=== PATIENT | male | born 1995 | race American Indian/Alaskan Native ===

== ENCOUNTER 2021-02-11 12:20 | Emergency (ER) | payer BC ==
[2021-02-11] MEDS ORDERED: SODIUM CHLORIDE 0.9% 1000 ML 1,000 ML IV ONE ×2 (12:43→14:24)
[2021-02-11] MEDS ORDERED: ONDANSETRON 4 MG/2 ML INJ IV ONE ×2 (12:43→14:33)
[2021-02-11] MEDS ORDERED: FAMOTIDINE 20 MG/2 ML INJ IV ONE (12:43)
--- NOTE | 2021-02-11 12:53 | Emergency Department Report ---
ED N/V/D HPI - General Chief complaint: Nausea/Vomiting/Diarrhea Stated complaint: EMESIS Time Seen by Provider: 02/11/21 12:40 Source: patient Mode of arrival: Ambulatory Limitations: No Limitations - History of Present Illness Initial comments: Patient is a 25-year-old F [place] male who is previously healthy is presenting with 3 days of nausea and vomiting. Patient states he had not eaten red meat in several years and prepared a beef hamburger at home several days ago and has now been vomiting since. States he ate the hamburger that he believes was cooked throughout and started vomiting the next morning. He states he is weak fatigued from constantly vomiting has been unable to keep anything down. Denies diarrhea fevers chills cough cold congestion. States he has no abdominal pain. - Related Data Previous Rx's Medication Instructions Recorded Last Taken Type Famotidine [Pepcid] 40 mg PO QHS #10 tablet 02/11/21 Unknown Rx Ondansetron [Zofran Odt] 4 mg PO Q8HR #10 tab.rapdis 02/11/21 Unknown Rx Allergies Allergy/AdvReac Type Severity Reaction Status Date / Time No Known Allergies Allergy Unverified 02/11/21 12:27 ED Review of Systems ROS: Stated complaint: EMESIS Other details as noted in HPI Comment: All other systems reviewed and negative ED Past Medical Hx - Past Medical History Hx Asthma: Yes - Surgical History Additional Surgical History: KNEE - Social History Smoking Status: Never Smoker Substance Use Type: None - Medications Home Medications: Home Medications Medication Instructions Recorded Confirmed Last Taken Type Famotidine [Pepcid] 40 mg PO QHS #10 tablet 02/11/21 Unknown Rx Ondansetron [Zofran Odt] 4 mg PO Q8HR #10 tab.rapdis 02/11/21 Unknown Rx ED Physical Exam - General Limitations: No Limitations General appearance: alert, in no apparent distress - Head Head exam: Present: atraumatic, normocephalic - Eye Eye exam: Present: normal appearance - ENT ENT exam: Present: mucous membranes dry - Neck Neck exam: Present: normal inspection - Respiratory Respiratory exam: Present: normal lung sounds bilaterally. Absent: respiratory distress, wheezes, rales, rhonchi - Cardiovascular Cardiovascular Exam: Present: regular rate, normal rhythm, normal heart sounds. Absent: systolic murmur, diastolic murmur, rubs, gallop - GI/Abdominal GI/Abdominal exam: Present: soft, normal bowel sounds. Absent: distended, tenderness, guarding, rebound - Rectal Rectal exam: Present: deferred - Extremities Exam Extremities exam: Present: normal inspection - Back Exam Back exam: Present: normal inspection - Neurological Exam Neurological exam: Present: alert, oriented X3 - Psychiatric Psychiatric exam: Present: normal affect, normal mood - Skin Skin exam: Present: warm, dry, intact, normal color. Absent: rash ED Course Vital Signs 02/11/21 02/11/21 12:28 15:50 Temperature 98.7 F Pulse Rate 90 97 H Respiratory 20 16 Rate Blood Pressure 148/99 Blood Pressure 152/87 [Right] O2 Sat by Pulse 98 98 Oximetry ED Medical Decision Making - Lab Data Result diagrams: 02/11/21 13:08 02/11/21 13:08 - Medical Decision Making Patient given antiemetics and IV hydration. Second bag was D5 normal saline. Patient is feeling much improved. Laboratory studies show that he does have some renal strain and will be given primary care for follow-up to ensure that his renal function is improved back to normal. Critical care attestation.: If time is entered above; I have spent that time in minutes in the direct care of this critically ill patient, excluding procedure time. ED Disposition Clinical Impression: Gastritis, Dehydration, Renal insufficiency Disposition: - TO HOME OR SELFCARE Is pt being admited?: No Does the pt Need Aspirin: No Condition: Stable Instructions: Dehydration, Adult, [id number], Gastritis, Adult, [id number] Additional Instructions: Your renal function today showed a BUN of 35 and a creatinine of 1.6 please fol low-up with the assigned physician Dr. Gomez or your primary care physician in the next week to have these numbers rechecked to ensure that they have returned back to normal Referrals: BENIGNO LAZAR [Other] - 3-5 Days YASMANI GOMEZ MD [Staff Physician] - 3-5 Days Time of Disposition: 17:02
[2021-02-11 13:40] LABS: Basophils % (Auto) 0.3 % (0.0-1.8); Eosinophils % (Auto) 0.3 % (0.0-4.3); Hematocrit 42.7 % (35.5-45.6); Hemoglobin 14.7 gm/dl (11.8-15.2); Lymphocytes # (Auto) 0.9 K/mm3 (1.2-5.4); Lymphocytes % (Auto) 7.2 % (13.4-35.0); Mean Corpuscular HGB Conc 34 % (32-34); Mean Corpuscular Volume 92 fl (84-94); Monocytes # (Auto) 1.1 K/mm3 (0.0-0.8); Monocytes % (Auto) 8.4 % (0.0-7.3); Platelet Count 173 K/mm3 (140-440); Red Blood Count 4.66 M/mm3 (3.65-5.03); Red Cell Distribution Width 12.5 % (13.2-15.2)
[2021-02-11 14:01] LABS: Alanine Aminotransferase 24 units/L (7-56); Albumin 5.2 g/dL (3.9-5); BUN/Creatinine Ratio 22; Blood Urea Nitrogen 35 mg/dL (9-20); Calcium 9.9 mg/dL (8.4-10.2); Hemolysis Index 4
[2021-02-11] MEDS ORDERED: D5W/0.9% NACL 1,000 ML IV SCH (15:00)
[2021-02-11 17:09] VITALS: BP 142/82
== END 2021-02-11 17:16 | disposition home or self-care (01) ==
LOC: ED 12:20
DX: K29.70 Gastritis, unspecified, without bleeding (principal); E86.0 Dehydration; N28.9 Disorder of kidney and ureter, unspecified; Z79.899 Other long term (current) drug therapy; J45.909 Unspecified asthma, uncomplicated
CPT/HCPCS: 36415; 80053; 85025; 96361; 96374; 96375; 96376; 99283; J2405; J7030; J7042